=== PATIENT | male | born 1995 | race Caucasian/White ===

== ENCOUNTER 2022-01-06 18:33 | Emergency (ER) | payer SELFPAY ==
[2022-01-06 18:42] VITALS: BP 139/72; PULSE 62; RESP 18; TEMP 36.6; O2SAT 99; BMI 31.7
== END 2022-01-06 22:45 | disposition left against medical advice (07) ==
PROVIDERS: Emergency Provider Emergency Medicine
DX: R10.9 Unspecified abdominal pain (principal); H92.03 Otalgia, bilateral
CPT/HCPCS: 99281